=== PATIENT | male | born 1945 | race Caucasian/White ===

== ENCOUNTER 2019-03-28 12:56 | Emergency (ER) | payer MEDICARE, BC ==
[2019-03-28] MEDS ORDERED: Sodium Chloride 0.9% 10 ML Syringe FLUSH PRN (13:00)
[2019-03-28] MEDS ORDERED: HYDROmorphone 0.5 MG/0.5 ML Syringe IVPUSH ONE (13:01)
[2019-03-28] MEDS ORDERED: Diphtheria,Pertussis(Acell),Tetanus Vaccine 0.5 ML SDV IM ONE (13:02)
--- NOTE | 2019-03-28 13:38 | EDM.PDOC ---
ED HPI GENERAL MEDICAL PROBLEM - General Chief Complaint: Laceration Stated Complaint: CUT FINGERS WHILE USING TABLE SAW Time Seen by Provider: 03/28/19 13:20 Source of Information: Reports: Patient, Family History Limitations: Reports: No Limitations - History of Present Illness INITIAL COMMENTS - FREE TEXT/NARRATIVE: pt had the gaurd off of his table saw. He was doing some work today and he ended up getting his right hand in the saw. He has a laceration of his rt small finger and he has a laceration of the tip of the rt index finger. He is able to move the small finger. Onset: Today, Sudden Duration: Hour(s): Location: Reports: Upper Extremity, Right Associated Symptoms: Reports: Other (pain in rt hand where the lacerations were. ) finger Pain Score (Numeric/FACES): 6 - Related Data Allergies Allergy/AdvReac Type Severity Reaction Status Date / Time No Known Allergies Allergy Verified 03/28/19 13:19 Home Meds: Home Meds Albuterol Sulfate [Proair Hfa] 2 puff INH BEDTIME PRN 06/09/16 [History] Lisinopril 10 mg PO DAILY 11/10/16 [History] Triamterene/Hydrochlorothiazid [Triamterene-HCTZ 37.5-25 MG] 1 tab PO DAILY [History] Albuterol [Proventil Neb Soln] 0.63 mg NEB Q6H PRN 11/29/16 [History] Ibuprofen [Advil] 200 mg PO TID 07/13/17 [History] Fluticasone/Salmeterol [Advair 250-50 Diskus] 1 diskus INH BID 12/06/18 [History ] Past Medical History HEENT History: Reports: Impaired Vision Other HEENT History: wear glasses Cardiovascular History: Reports: Hypertension, SOB on Exertion Respiratory History: Reports: COPD, Pneumonia, Recurrent, Sleep Apnea, SOB Gastrointestinal History: Reports: None Musculoskeletal History: Reports: Arthritis, Back Pain, Chronic, Fracture Endocrine/Metabolic History: Reports: Obesity/BMI 30+ Hematologic History: Reports: None Dermatologic History: Reports: Cellulitis - Infectious Disease History Infectious Disease History: Reports: Chicken Pox, Measles, Mumps - Past Surgical History HEENT Surgical History: Reports: Adenoidectomy, Tonsillectomy Cardiovascular Surgical History: Reports: None Respiratory Surgical History: Reports: Lung Biopsies, Lung Resection GI Surgical History: Reports: Colonoscopy Endocrine Surgical History: Reports: None Musculoskeletal Surgical History: Reports: Carpal Tunnel, Hip Replacement Other Musculoskeletal Surgeries/Procedures:: back injections Social & Family History - Family History Cardiac: Reports: High Cholesterol, Hypertension, Pacemaker : Reports: Diabetic Nephropathy Musculoskeletal: Reports: Arthritis Neurological: Reports: CVA, Other (See Below) Other Neurological Family History: parkinsons Oncologic: Reports: Breast - Tobacco Use Smoking Status *Q: Unknown Ever Smoked - Caffeine Use Caffeine Use: Reports: Coffee - Recreational Drug Use Recreational Drug Use: No ED ROS GENERAL - Review of Systems Review Of Systems: See Below Constitutional: Reports: No Symptoms HEENT: Reports: No Symptoms Respiratory: Reports: No Symptoms Cardiovascular: Reports: No Symptoms Endocrine: Reports: No Symptoms GI/Abdominal: Reports: No Symptoms : Reports: No Symptoms Musculoskeletal: Reports: Other ( laceration of the rt hand. ) Skin: Reports: No Symptoms ED EXAM, SKIN/RASH Exam: See Below Text/Narrative:: pt arrived with a history of a accident with his table saw. He has a laceration of the small finger on the feng aspec 2.5 inches in length. He has fair motion of the finger He went into the tip of the index finger and got into the tuft of the tip of the finger. Exam Limited By: No Limitations General Appearance: Alert, Anxious, Moderate Distress Ears: Normal TMs Nose: Normal Inspection Throat/Mouth: Normal Inspection Head: Atraumatic Neck: Normal Inspection Extremities: Other ( pt has a 2.5 inch laceration of the feng aspect of the small finger. He does have motion in the finger. He hit the tip of the index finger and got into the tuft of the finger. ) Neurological: Alert, Oriented, Normal Cognition Course - Vital Signs Last Recorded V/S: Last Vital Signs Temp 36.3 C 03/28/19 13:15 Pulse 98 03/28/19 13:15 Resp 20 03/28/19 13:15 BP 137/84 03/28/19 13:15 Pulse Ox 95 03/28/19 13:15 - Orders/Labs/Meds Meds: Medications Discontinued Medications Generic Name Dose Route Start Last Admin Trade Name Freq PRN Reason Stop Dose Admin Diphtheria/Tetanus/Acell Pertussis 0.5 ml 03/28/19 13:02 03/28/19 13:11 Adacel IM 03/28/19 13:03 0.5 ml .ONCE ONE Administration Hydromorphone HCl 0.5 mg 03/28/19 13:01 03/28/19 13:11 Dilaudid IVPUSH 03/28/19 13:02 0.5 mg ONETIME ONE Administration Cefazolin Sodium/Dextrose 2 gm 50 mls @ 100 mls/hr 03/28/19 14:15 03/28/19 14 :27 / Premix IV 03/28/19 14:44 100 mls/hr ONETIME ONE Administration Sodium Chloride 10 ml 03/28/19 13:00 03/28/19 13:12 Saline Flush FLUSH 10 ml ASDIRECTED PRN Administration Keep Vein Open - Re-Assessments/Exams Free Text/Narrative Re-Assessment/Exam: 03/28/19 14:48 pt was given tdap booster. He was given 2 grams of ancef. He also was given dilaudid .5 iv. 03/28/19 14:49 Dr Lazcano will consult. He explored the small finger and found a complete laceration of the profundis . the wound was closed. and will be covered with antibiotics, 03/28/19 16:47 Departure - Departure Time of Disposition: 17:35 Disposition: Home, Self-Care 01 Condition: Fair Clinical Impression: Laceration involving tendon - Discharge Information Instructions: Laceration Care, Adult, [id number] Referrals: Nino Meredith MD [Primary Care Provider] - Forms: ED Department Discharge Care Plan Goals: keflex 500mg tid, norco 5/325 q6h prn #10 for pain, elevate hand when sitting. keep appt with Dr Farnsworth hand surgeon at [facility]. -- Tuesday at 10-10 copy of xray should be placed on disc to go with the pt. The records from here should be sent with him
[2019-03-28 13:44] VITALS: BP 137/84; PULSE 98
[2019-03-28] MEDS ORDERED: ceFAZolin 2 GM in Premix Bag 1 BAG IV ONE (14:15)
--- NOTE | 2019-03-28 14:26 | CRLCR ---
INDICATION: Table saw injury. TECHNIQUE: Three views of the right hand. COMPARISON: None. FINDINGS: Laceration at the index finger tip with tiny amount of bone loss from the distal phalangeal tuft. Laceration at the little finger tip with apparent fracture of the distal phalangeal tuft but no obvious bone loss. Additional laceration of the palmar aspect of the little finger extending to the cortex of the middle phalanx but no obvious fracture or bone loss. IMPRESSION: 1. Index finger tip laceration with tiny amount of bone loss from the distal phalangeal tuft. 2. Little finger tip laceration with distal phalangeal tuft fracture but no obvious bone loss. 3. Deep laceration along the palmar aspect of the mid little finger without fracture or obvious bone loss. Dictated by Santos Alberto MD @ Mar 28 2019 2:19PM Signed by Dr. Santos Alberto @ Mar 28 2019 2:24PM
== END 2019-03-28 17:33 | disposition home or self-care (01) ==
LOC: JP.ED 12:56
DX: S66.821A Laceration of other specified muscles, fascia and tendons at wrist and hand level, right hand, initial encounter (principal); I10 Essential (primary) hypertension; Z79.899 Other long term (current) drug therapy; Z23 Encounter for immunization; W27.0XXA Contact with workbench tool, initial encounter
CPT/HCPCS: 73130; 90471; 90715; 96374; 96375; 99283; J0690; J1170

== ENCOUNTER 2020-05-21 10:37 | Emergency (ER) | payer MEDICARE, BC ==
[2020-05-21] MEDS ORDERED: Sodium Chloride 0.9% 10 ML Syringe FLUSH PRN (10:47)
[2020-05-21] MEDS ORDERED: Adenosine 6 MG/2 ML SDV IVPUSH ONE (10:49)
[2020-05-21] MEDS ORDERED: Diltiazem 25 MG/5 ML SDV IVPUSH ONE (10:54)
[2020-05-21] MEDS ORDERED: Sodium Chloride 0.9% 500 ML IV ONE (11:04)
--- NOTE | 2020-05-21 12:42 | EDM.PDOC ---
ED HPI GENERAL MEDICAL PROBLEM - General Chief Complaint: Cardiovascular Problem Stated Complaint: REFERRED FROM CLINIC Time Seen by Provider: 05/21/20 10:46 Source of Information: Reports: Patient, Old Records, Provider History Limitations: Reports: No Limitations - History of Present Illness INITIAL COMMENTS - FREE TEXT/NARRATIVE: Pilo is a 74-year-old male who presented to the clinic today for evaluation of rapid heartbeat. The EKG was performed and showed tachycardia read as sinus tachycardia, however, the rate was 130 bpm and was suggestive of atrial flutter prompting the provider to send the patient to the ED for evaluation. Patient is having exertional dyspnea. He is unsure exactly when the tachycardia started but he has been taking his blood pressure frequently over the last several days and noted that his heart rate was in 90s until this morning. His heart rate did not jump up to the 130s until he was seen in clinic today. Eyes any fever, chills, cough, chest pain or back pain, abdominal pain, nausea, vomiting, or diarrhea. Onset: Today Improves with: Reports: Rest Worsens with: Reports: Movement Associated Symptoms: Reports: Shortness of Breath (With exertion) - Related Data Allergies Allergy/AdvReac Type Severity Reaction Status Date / Time No Known Allergies Allergy Verified 05/21/20 10:49 Home Meds: Home Meds Albuterol Sulfate [Proair Hfa] 2 puff INH BEDTIME PRN 06/09/16 [History] Lisinopril 10 mg PO DAILY 11/10/16 [History] Triamterene/Hydrochlorothiazid [Triamterene-HCTZ 37.5-25 MG] 1 tab PO DAILY 11/10/16 [History] Albuterol [Proventil Neb Soln] 0.63 mg NEB Q6H PRN 11/29/16 [History] Ibuprofen [Advil] 200 mg PO TID 07/13/17 [History] Fluticasone Propion/Salmeterol [Advair 250-50 Diskus] 1 diskus INH BID 12/06/18 [History] Past Medical History HEENT History: Reports: Impaired Vision Other HEENT History: wear glasses Cardiovascular History: Reports: Hypertension, SOB on Exertion Respiratory History: Reports: COPD, Pneumonia, Recurrent, Sleep Apnea, SOB Gastrointestinal History: Reports: None Musculoskeletal History: Reports: Arthritis, Back Pain, Chronic, Fracture Endocrine/Metabolic History: Reports: Obesity/BMI 30+ Hematologic History: Reports: None Dermatologic History: Reports: Cellulitis - Infectious Disease History Infectious Disease History: Reports: Chicken Pox - Past Surgical History HEENT Surgical History: Reports: Adenoidectomy, Tonsillectomy Cardiovascular Surgical History: Reports: None Respiratory Surgical History: Reports: Lung Biopsies, Lung Resection GI Surgical History: Reports: Colonoscopy Endocrine Surgical History: Reports: None Musculoskeletal Surgical History: Reports: Carpal Tunnel, Hip Replacement Other Musculoskeletal Surgeries/Procedures:: back injections Social & Family History - Family History Cardiac: Reports: High Cholesterol, Hypertension, Pacemaker : Reports: Diabetic Nephropathy Musculoskeletal: Reports: Arthritis Neurological: Reports: CVA, Other (See Below) Other Neurological Family History: parkinsons Oncologic: Reports: Breast - Tobacco Use Tobacco Use Status *Q: Current Every Day Tobacco User Years of Tobacco use: 50 Packs/Tins Daily: 0.5 - Caffeine Use Caffeine Use: Reports: Coffee - Recreational Drug Use Recreational Drug Use: No ED ROS GENERAL - Review of Systems Review Of Systems: See Below Constitutional: Reports: No Symptoms HEENT: Reports: No Symptoms Respiratory: Reports: Shortness of Breath Cardiovascular: Reports: Blood Pressure Problem, Dyspnea on Exertion, Palpitations (Tachycardia) Endocrine: Reports: No Symptoms GI/Abdominal: Reports: No Symptoms : Reports: No Symptoms Musculoskeletal: Reports: No Symptoms Skin: Reports: No Symptoms Neurological: Reports: No Symptoms Psychiatric: Reports: No Symptoms Hematologic/Lymphatic: Reports: No Symptoms Immunologic: Reports: No Symptoms ED EXAM, GENERAL - Physical Exam Exam: See Below Exam Limited By: No Limitations General Appearance: Alert, Anxious Eye Exam: Bilateral Eye: EOMI, PERRL Throat/Mouth: Normal Inspection, Normal Lips, Normal Oropharynx, Normal Voice Head: Atraumatic, Normocephalic Neck: Normal Inspection, Supple. No: Carotid Bruit Respiratory/Chest: No Respiratory Distress, Lungs Clear, Normal Breath Sounds, No Accessory Muscle Use, Chest Non-Tender. No: Rales, Rhonchi, Wheezing, Stridor Cardiovascular: Normal Peripheral Pulses, No Edema, No JVD, Tachycardia (With a regular rhythm. We had the patient Valsalva and it appears he is in atrial flutter with 2-1 conduction.), Systolic Murmur (2/6 6 colic ejection murmur heard in the right upper sternal border) Peripheral Pulses: 2+: Radial (L), Radial (R) GI/Abdominal: Normal Bowel Sounds, Soft, Non-Tender, No Organomegaly, No Distention, No Abnormal Bruit Back Exam: Normal Inspection, Full Range of Motion Extremities: Normal Inspection, Normal Range of Motion, Non-Tender, No Pedal Edema, Normal Capillary Refill Neurological: Alert, Oriented, CN II-XII Intact, Normal Cognition, Normal Gait, No Motor/Sensory Deficits Psychiatric: Normal Affect, Normal Mood Skin Exam: Warm, Dry, Intact Lymphatic: No Adenopathy #1 Interpretation EKG Date: 05/21/20 Time: 10:46 Rhythm: A-Flutter Rate (Beats/Min): 131 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) ST-T: Other (Repolarization abnormality) QT: Normal Course - Vital Signs Last Recorded V/S: Last Vital Signs Temp 36.0 C L 05/21/20 14:17 Pulse 60 05/21/20 14:17 Resp 19 05/21/20 14:17 BP 107/66 05/21/20 14:17 Pulse Ox 95 05/21/20 14:17 - Orders/Labs/Meds Orders: Active Orders 24 hr Category Date Time Status EKG Documentation Completion [RC] ASDIRECTED Care 05/21/20 10:48 Active Heparin Sodium/D5W [Heparin 25,000 Units in D5W 500 ML] Med 05/21/20 13:30 Active 25,000 units in 500 ml IV TITRATE Sodium Chloride 0.9% [Saline Flush] Med 05/21/20 10:47 Active 10 ml FLUSH ASDIRECTED PRN Saline Lock Insert [OM.PC] Routine Oth 05/21/20 10:47 Ordered EKG 12 Lead [EK] Routine Ther 05/21/20 10:47 Ordered Medication Orders Heparin Sodium/Dextrose (Heparin 25,000 Units In D5w 500 Ml) 25,000 units in 500 mls @ 23.76 mls/hr IV TITRATE MERARI; Protocol Last Admin: 05/21/20 14:05 Dose: 12 units/kg/hr, 23.76 mls/hr Documented by: PREILOR Cosigned by: [id number] Sodium Chloride (Saline Flush) 10 ml FLUSH ASDIRECTED PRN PRN Reason: Keep Vein Open Labs: Laboratory Tests 05/21/20 05/21/20 05/21/20 Range/Units 10:53 10:54 10:54 WBC 9.9 (4.5-11.0) K/uL RBC 4.94 (4.30-5.90) M/uL Hgb 15.9 H D (12.0-15.0) g/dL Hct 49.1 (40.0-54.0) % MCV 99 H (80-98) fL MCH 32 H (27-31) pg MCHC 32 (32-36) % Plt Count 221 (150-400) K/uL Neut % (Auto) 64 (36-66) % Lymph % (Auto) 24 (24-44) % [place] % (Auto) 10 H (2-6) % Eos % (Auto) 2 (2-4) % Baso % (Auto) 1 (0-1) % APTT 26.4 L (27.0-36.0) sec Sodium (140-148) mmol/L Potassium (3.6-5.2) mmol/L Chloride (100-108) mmol/L Carbon Dioxide (21-32) mmol/L Anion Gap (5.0-14.0) mmol/L BUN (7-18) mg/dL Creatinine (0.8-1.3) mg/dL Est Cr Clr Drug Dosing mL/min Estimated GFR (MDRD) (>60) Glucose (74-106) mg/dL Calcium (8.5-10.1) mg/dL Magnesium (1.8-2.4) mg/dL Total Bilirubin (0.2-1.0) mg/dL AST (15-37) U/L ALT (12-78) U/L Alkaline Phosphatase (46-116) U/L Troponin I (0.000-0.056) ng/mL C-Reactive Protein 0.19 (0.0-0.3) mg/dL Total Protein (6.4-8.2) g/dL Albumin (3.4-5.0) g/dL Globulin (2.3-3.5) g/dL Albumin/Globulin Ratio (1.2-2.2) TSH, Ultra Sensitive (0.358-3.740) uIU/mL 10/28/20 10/28/20 Range/Units 10:54 10:54 WBC (4.5-11.0) K/uL RBC (4.30-5.90) M/uL Hgb (12.0-15.0) g/dL Hct (40.0-54.0) % MCV (80-98) fL MCH (27-31) pg MCHC (32-36) % Plt Count (150-400) K/uL Neut % (Auto) (36-66) % Lymph % (Auto) (24-44) % [place] % (Auto) (2-6) % Eos % (Auto) (2-4) % Baso % (Auto) (0-1) % APTT (27.0-36.0) sec Sodium 142 (140-148) mmol/L Potassium 3.9 (3.6-5.2) mmol/L Chloride 106 (100-108) mmol/L Carbon Dioxide 29 (21-32) mmol/L Anion Gap 7.4 (5.0-14.0) mmol/L BUN 33 H (7-18) mg/dL Creatinine 1.0 (0.8-1.3) mg/dL Est Cr Clr Drug Dosing 72.21 mL/min Estimated GFR (MDRD) > 60 (>60) Glucose 107 H (74-106) mg/dL Calcium 8.9 (8.5-10.1) mg/dL Magnesium 2.0 (1.8-2.4) mg/dL Total Bilirubin 0.5 (0.2-1.0) mg/dL AST 22 (15-37) U/L ALT 38 (12-78) U/L Alkaline Phosphatase 80 (46-116) U/L Troponin I 0.144 H* (0.000-0.056) ng/mL C-Reactive Protein (0.0-0.3) mg/dL Total Protein 7.2 (6.4-8.2) g/dL Albumin 3.6 (3.4-5.0) g/dL Globulin 3.6 H (2.3-3.5) g/dL Albumin/Globulin Ratio 1.0 L (1.2-2.2) TSH, Ultra Sensitive 0.431 (0.358-3.740) uIU/mL Meds: Medications Generic Name Dose Route Start Last Admin Trade Name Freq PRN Reason Stop Dose Admin Heparin Sodium/Dextrose 25,000 units in 500 mls @ 23.76 mls/hr 05/21/20 13:30 05/21/20 14:05 Heparin 25,000 Units In D5w 500 Ml IV 12 units/kg/hr TITRATE MERARI 23.76 mls/hr Administration Protocol 12 UNITS/KG/HR Sodium Chloride 10 ml 05/21/20 10:47 Saline Flush FLUSH ASDIRECTED PRN Keep Vein Open Discontinued Medications Generic Name Dose Route Start Last Admin Trade Name Freq PRN Reason Stop Dose Admin Adenosine 12 mg 05/21/20 10:49 Adenocard IVPUSH 05/21/20 10:50 NOW ONE Diltiazem HCl 20 mg 05/21/20 10:54 05/21/20 11:03 Diltiazem IVPUSH 05/21/20 10:55 20 mg ONETIME ONE Administration Sodium Chloride 500 mls @ 500 mls/hr 05/21/20 11:04 05/21/20 11:09 Normal Saline IV 05/21/20 12:03 500 mls/hr .BOLUS ONE Administration Metoprolol Succinate 25 mg 05/21/20 13:26 05/21/20 13:53 Toprol Xl PO 05/21/20 13:27 25 mg ONETIME ONE Administration - Re-Assessments/Exams Free Text/Narrative Re-Assessment/Exam: 05/21/20 13:49 I discussed the case with Dr. Paulino, the ED physician from [facility] who accepts the patient in transfer for further admission and care of his non-STEMI and acute onset of atrial flutter. The patient will go by ground EMS. We initiated heparin IV and metoprolol 25 mg p.o. to rate control him without causing significant hypotension again as he had with the diltiazem. Departure - Departure Time of Disposition: 13:55 Disposition: DC/Tfer to Other 70 Reason for Transfer *Q: Other (Further evaluation and care by cardiology for new onset of atrial flutter and non-STEMI) Condition: Good Clinical Impression: Non-STEMI (non-ST elevated myocardial infarction) Atrial flutter Qualifiers: Atrial flutter type: typical Qualified Code(s): I48.3 - Typical atrial flutter Referrals: Nino Meredith MD [Primary Care Provider] - Forms: ED Department Discharge Care Plan Goals: Patient will be transferred to [facility] for admission and further work-up of his new onset of atrial flutter and non-STEMI. Sepsis Event Note (ED) - Evaluation Sepsis Screening Result: No Definite Risk - Focused Exam Vital Signs: Vital Signs Temp Pulse Pulse Resp BP BP Pulse Ox 05/21/20 14:17 36.0 C L 60 19 107/66 95 05/21/20 13:53 64 109/68 05/21/20 13:45 61 20 112/70 95 05/21/20 13:15 61 24 H 102/63 93 L 05/21/20 13:00 65 22 H 90/47 L 93 L 05/21/20 12:45 65 26 H 92/63 94 L 05/21/20 12:30 66 20 82/48 L 93 L 05/21/20 12:15 64 25 H 76/43 L 95 05/21/20 12:00 65 18 74/44 L 95 05/21/20 11:45 64 20 85/54 L 94 L 05/21/20 11:29 65 18 83/55 L 93 L 05/21/20 11:15 65 26 H 86/59 L 91 L 05/21/20 11:00 65 22 H 84/59 L 92 L 05/21/20 10:45 131 H 19 112/70 93 L 05/21/20 10:44 36.9 C 130 H 24 H 105/77 94 L - Problem List & Annotations (1) Atrial flutter SNOMED Code(s): 7411837 Code(s): I48.92 - UNSPECIFIED ATRIAL FLUTTER Status: Acute Priority: High Current Visit: Yes Qualifiers: Atrial flutter type: typical Qualified Code(s): I48.3 - Typical atrial flutter (2) Non-STEMI (non-ST elevated myocardial infarction) SNOMED Code(s): 56439479 Code(s): I21.4 - NON-ST ELEVATION (NSTEMI) MYOCARDIAL INFARCTION Status: Acute Priority: High Current Visit: Yes - Problem List Review Problem List Initiated/Reviewed/Updated: Yes - My Orders Last 24 Hours: My Active Orders 05/21/20 10:47 Sodium Chloride 0.9% [Saline Flush] 10 ml FLUSH ASDIRECTED PRN Saline Lock Insert [OM.PC] Routine EKG 12 Lead [EK] Routine 05/21/20 10:48 EKG Documentation Completion [RC] ASDIRECTED 05/21/20 13:30 Heparin Sodium/D5W [Heparin 25,000 Units in D5W 500 ML] 25,000 units in 500 ml IV TITRATE - Assessment/Plan Last 24 Hours: My Active Orders 05/21/20 10:47 Sodium Chloride 0.9% [Saline Flush] 10 ml FLUSH ASDIRECTED PRN Saline Lock Insert [OM.PC] Routine EKG 12 Lead [EK] Routine 05/21/20 10:48 EKG Documentation Completion [RC] ASDIRECTED 05/21/20 13:30 Heparin Sodium/D5W [Heparin 25,000 Units in D5W 500 ML] 25,000 units in 500 ml IV TITRATE Plan: Patient will be transferred to [facility] in [place] for further evaluation and care.
[2020-05-21] MEDS ORDERED: Metoprolol Succinate 25 MG Tab.ER PO ONE (13:26)
[2020-05-21] MEDS ORDERED: Heparin Sodium/D5W 25,000 UNITS/500 ML BAG IV SCH (13:30)
[2020-05-21 14:18] VITALS: BP 107/66; PULSE 60
== END 2020-05-21 15:11 | disposition other institution (70) ==
LOC: JP.ED 10:37
DX: I21.4 Non-ST elevation (NSTEMI) myocardial infarction (principal); I10 Essential (primary) hypertension; J44.9 Chronic obstructive pulmonary disease, unspecified; E66.9 Obesity, unspecified; F17.210 Nicotine dependence, cigarettes, uncomplicated; Z68.29 Body mass index [BMI] 29.0-29.9, adult; Z79.899 Other long term (current) drug therapy
CPT/HCPCS: 36415; 80053; 83735; 84443; 84484; 85025; 85730; 86140; 93005; 96365; 96375; 99285; A9270; J1644; J3490; J7040

== ENCOUNTER 2020-06-05 16:38 | Emergency (ER) | payer MEDICARE, BC ==
--- NOTE | 2020-06-05 16:42 | EDM.PDOC ---
ED HPI GENERAL MEDICAL PROBLEM - General Chief Complaint: Chest Pain Stated Complaint: CHEST PAIN Time Seen by Provider: 06/05/20 16:40 Source of Information: Reports: Patient, Old Records History Limitations: Reports: No Limitations - History of Present Illness INITIAL COMMENTS - FREE TEXT/NARRATIVE: 74 yo male here with mild residual chest pain after taking 2 SL NTG tabs at home for chest pain that began about 2 pm today while watching TV. He recently has a single coronary artery stented at [facility]. He had a little SOB with his sx's at home. No nausea, diaphoresis or radiation. No fever or cough. No calf pain. Took an extra dose of metoprolol 12.5 mg before coming to the ER. 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 (x 2) chest Pain Score (Numeric/FACES): 3 - Related Data Allergies Allergy/AdvReac Type Severity Reaction Status Date / Time No Known Allergies Allergy Verified 06/05/20 16:41 Home Meds: Home Meds Albuterol Sulfate [Proair Hfa] 2 puff INH BEDTIME PRN 06/09/16 [History] Lisinopril 10 mg PO DAILY 11/10/16 [History] Albuterol [Proventil Neb Soln] 0.63 mg NEB Q6H PRN 11/29/16 [History] Ibuprofen [Advil] 200 mg PO TID 07/13/17 [History] Fluticasone Propion/Salmeterol [Advair 250-50 Diskus] 1 diskus INH BID 12/06/18 [History] Apixaban [Eliquis] 5 mg PO BID 06/05/20 [History] Aspirin [Ecotrin EC] 81 mg PO DAILY 06/05/20 [History] Clopidogrel [Plavix] 75 mg PO DAILY 06/05/20 [History] Metoprolol Tartrate 12.5 mg PO DAILY 06/05/20 [History] Nitroglycerin [Nitrostat] 0.4 mg SL ASDIRECTED 06/05/20 [History] atorvaSTATin [Lipitor] 80 mg PO BEDTIME 06/05/20 [History] Past Medical History HEENT History: Reports: Impaired Vision Other HEENT History: wear glasses Cardiovascular History: Reports: Hypertension, SOB on Exertion Respiratory History: Reports: COPD, Pneumonia, Recurrent, Sleep Apnea, SOB Gastrointestinal History: Reports: None Musculoskeletal History: Reports: Arthritis, Back Pain, Chronic, Fracture Endocrine/Metabolic History: Reports: Obesity/BMI 30+ Hematologic History: Reports: None Dermatologic History: Reports: Cellulitis - Infectious Disease History Infectious Disease History: Reports: Chicken Pox - Past Surgical History HEENT Surgical History: Reports: Adenoidectomy, Tonsillectomy Cardiovascular Surgical History: Reports: None Respiratory Surgical History: Reports: Lung Biopsies, Lung Resection GI Surgical History: Reports: Colonoscopy Endocrine Surgical History: Reports: None Musculoskeletal Surgical History: Reports: Carpal Tunnel, Hip Replacement Other Musculoskeletal Surgeries/Procedures:: back injections Social & Family History - Family History Cardiac: Reports: High Cholesterol, Hypertension, Pacemaker : Reports: Diabetic Nephropathy Musculoskeletal: Reports: Arthritis Neurological: Reports: CVA, Other (See Below) Other Neurological Family History: parkinsons Oncologic: Reports: Breast - Caffeine Use Caffeine Use: Reports: Coffee ED ROS GENERAL - Review of Systems Review Of Systems: See Below Constitutional: Reports: No Symptoms HEENT: Reports: No Symptoms Respiratory: Reports: Shortness of Breath (when his CP was worse, now gone at rest. ). Denies: Wheezing, Pleuritic Chest Pain, Cough, Sputum, Hemoptysis Cardiovascular: Reports: Chest Pain. Denies: Lightheadedness, Palpitations Endocrine: Reports: No Symptoms GI/Abdominal: Reports: No Symptoms : Reports: No Symptoms Musculoskeletal: Reports: No Symptoms Skin: Reports: No Symptoms Neurological: Reports: No Symptoms ED EXAM, GENERAL - Physical Exam Exam: See Below Exam Limited By: No Limitations General Appearance: Alert, WD/WN, No Apparent Distress Eye Exam: Bilateral Eye: Normal Inspection Ears: Normal External Exam, Normal Canal, Hearing Grossly Normal Ear Exam: Bilateral Ear: Auricle Normal, Canal Normal Nose: Normal Inspection, No Blood Throat/Mouth: Normal Inspection, Normal Lips, Normal Oropharynx, Normal Voice, No Airway Compromise Head: Atraumatic, Normocephalic Neck: Normal Inspection Respiratory/Chest: No Respiratory Distress, Lungs Clear, Normal Breath Sounds, No Accessory Muscle Use, Chest Non-Tender Cardiovascular: Regular Rate, Rhythm, No Edema GI/Abdominal: Normal Bowel Sounds, Soft, Non-Tender, No Distention Back Exam: Normal Inspection Extremities: Normal Inspection, Normal Range of Motion, Non-Tender, No Pedal Edema. No: Pedal Edema Neurological: Alert, Oriented, CN II-XII Intact, Normal Cognition, No Motor/Sensory Deficits Psychiatric: Normal Affect, Normal Mood Skin Exam: Warm, Dry, Intact, Normal Color, No Rash ED CARDIOLOGY PROCEDURES - Cardioversion Time of Cardioversion: 19:30 Indication: Atrial Flutter with RVR Patient Counseled: Yes Informed Consent Obtained: Yes Preparation: IV Access, Airway Management Equipment, Supplemental Oxygen, Monitor Pre-Procedure Sedation: Propofol Cardioversion Energy: 200J Sync Mode: Monophasic Successful: Yes Number of Attempts: 1 Patient Condition Post Cardioversion: Improved Post Cardioversion EKG Reviewed: Yes #1 Interpretation EKG Date: 06/05/20 Time: 16:30 Rhythm: NSR Rate (Beats/Min): 115 [place]: Normal P-Wave: Present QRS: RBBB ST-T: Normal QT: Normal Comparison: Change From Previous EKG (rate has slowed by 16/min.) Course - Vital Signs Last Recorded V/S: Last Vital Signs Temp 35.6 C L 06/05/20 16:38 Pulse 117 H 06/05/20 17:58 Resp 20 06/05/20 16:38 BP 124/92 H 06/05/20 17:58 Pulse Ox 94 L 06/05/20 16:38 - Orders/Labs/Meds Orders: Active Orders 24 hr Category Date Time Status Cardiac Monitoring [RC] .As Directed Care 06/05/20 16:39 Active EKG Documentation Completion [RC] ASDIRECTED Care 06/05/20 16:39 Active MAGNESIUM [CHEM] Stat Lab 06/05/20 19:00 Received Sodium Chloride 0.9% [Saline Flush] Med 06/05/20 16:48 Active 10 ml FLUSH ASDIRECTED PRN Saline Lock Insert [OM.PC] Routine Oth 06/05/20 16:48 Ordered EKG 12 Lead [EK] Routine Ther 06/05/20 16:39 Ordered Medication Orders Sodium Chloride (Saline Flush) 10 ml FLUSH ASDIRECTED PRN PRN Reason: Keep Vein Open Labs: Laboratory Tests 06/05/20 06/05/20 06/05/20 Range/Units 16:48 16:48 16:48 WBC 9.7 (4.5-11.0) K/uL RBC 4.42 (4.30-5.90) M/uL Hgb 14.0 (12.0-15.0) g/dL Hct 44.3 (40.0-54.0) % MCV 100 H (80-98) fL MCH 32 H (27-31) pg MCHC 32 (32-36) % Plt Count 220 (150-400) K/uL D-Dimer, Quantitative 233.06 (0.0-500.0) ng/mL Sodium 142 (140-148) mmol/L Potassium 4.3 (3.6-5.2) mmol/L Chloride 106 (100-108) mmol/L Carbon Dioxide 29 (21-32) mmol/L Anion Gap 7.0 (5.0-14.0) mmol/L BUN 21 H (7-18) mg/dL Creatinine 0.9 (0.8-1.3) mg/dL Est Cr Clr Drug Dosing 80.23 mL/min Estimated GFR (MDRD) > 60 (>60) Glucose 77 (74-106) mg/dL Calcium 8.6 (8.5-10.1) mg/dL Troponin I 0.032 (0.000-0.056) ng/mL 06/05/20 Range/Units 19:00 WBC (4.5-11.0) K/uL RBC (4.30-5.90) M/uL Hgb (12.0-15.0) g/dL Hct (40.0-54.0) % MCV (80-98) fL MCH (27-31) pg MCHC (32-36) % Plt Count (150-400) K/uL D-Dimer, Quantitative (0.0-500.0) ng/mL Sodium (140-148) mmol/L Potassium (3.6-5.2) mmol/L Chloride (100-108) mmol/L Carbon Dioxide (21-32) mmol/L Anion Gap (5.0-14.0) mmol/L BUN (7-18) mg/dL Creatinine (0.8-1.3) mg/dL Est Cr Clr Drug Dosing mL/min Estimated GFR (MDRD) (>60) Glucose (74-106) mg/dL Calcium (8.5-10.1) mg/dL Troponin I 0.054 (0.000-0.056) ng/mL Meds: Medications Generic Name Dose Route Start Last Admin Trade Name Freq PRN Reason Stop Dose Admin Sodium Chloride 10 ml 06/05/20 16:48 Saline Flush FLUSH ASDIRECTED PRN Keep Vein Open Discontinued Medications Generic Name Dose Route Start Last Admin Trade Name Freq PRN Reason Stop Dose Admin Aspirin 243 mg 06/05/20 16:49 06/05/20 17:00 Aspirin PO 06/05/20 16:50 243 mg ONETIME ONE Administration Metoprolol Tartrate 25 mg 06/05/20 17:54 06/05/20 17:58 Lopressor PO 06/05/20 17:55 25 mg ONETIME ONE Administration Nitroglycerin 0.4 mg 06/05/20 16:48 06/05/20 17:00 Nitrostat SL 06/05/20 16:49 0.4 mg ONETIME ONE Administration Propofol 100 mg 06/05/20 18:41 06/05/20 19:03 Diprivan 20 Ml 1 mg/kg (100 mg) 06/05/20 18:42 100 mg IVPUSH Administration ONETIME ONE - Re-Assessments/Exams Free Text/Narrative Re-Assessment/Exam: 06/05/20 17:53 Became pain-free after a single NTG here and has remained pain-free since. Free Text/Narrative Re-Assessment/Exam: 06/05/20 18:36 discussed case with an [facility] Volunteer Coordinator, she thinks he's in aflutter and recommends cardioversion and then an increase in his metoprolol dose if he can go home. Departure - Departure Time of Disposition: 20:15 Disposition: Home, Self-Care 01 Clinical Impression: Atrial flutter with rapid ventricular response Instructions: Atrial Flutter Referrals: Nino Meredith MD [Primary Care Provider] - Forms: ED Department Discharge Additional Instructions: Increase your metoprolol tartrate to 25 mg every 12 hrs, next dose at bedtime tonight. Keep your appt with cardiology as scheduled. Return as needed. Continue your other medications as currently. Sepsis Event Note (ED) - Focused Exam Vital Signs: Vital Signs Temp Pulse Pulse Resp BP BP Pulse Ox 06/05/20 17:58 117 H 124/92 H 06/05/20 17:00 129/98 H 06/05/20 16:38 35.6 C L 113 H 20 129/98 H 94 L - My Orders Last 24 Hours: My Active Orders 06/05/20 16:39 Cardiac Monitoring [RC] .As Directed EKG Documentation Completion [RC] ASDIRECTED EKG 12 Lead [EK] Routine 06/05/20 16:48 Sodium Chloride 0.9% [Saline Flush] 10 ml FLUSH ASDIRECTED PRN Saline Lock Insert [OM.PC] Routine 06/05/20 19:00 MAGNESIUM [CHEM] Stat - Assessment/Plan Last 24 Hours: My Active Orders 06/05/20 16:39 Cardiac Monitoring [RC] .As Directed EKG Documentation Completion [RC] ASDIRECTED EKG 12 Lead [EK] Routine 06/05/20 16:48 Sodium Chloride 0.9% [Saline Flush] 10 ml FLUSH ASDIRECTED PRN Saline Lock Insert [OM.PC] Routine 06/05/20 19:00 MAGNESIUM [CHEM] Stat
[2020-06-05] MEDS ORDERED: Sodium Chloride 0.9% 10 ML Syringe FLUSH PRN (16:48)
[2020-06-05] MEDS ORDERED: Nitroglycerin 0.4 MG Tab.SL SL ONE (16:48)
[2020-06-05] MEDS ORDERED: Aspirin 81 MG Tab.Chew PO ONE (16:49)
[2020-06-05] MEDS ORDERED: Metoprolol Tartrate 25 MG Tab PO ONE (17:54)
[2020-06-05] MEDS ORDERED: Propofol 200 MG/20 ML SDV IVPUSH ONE (18:41)
[2020-06-05 20:18] VITALS: BP 121/78; PULSE 77
== END 2020-06-05 20:15 | disposition home or self-care (01) ==
LOC: JP.ED 16:38
DX: I48.92 Unspecified atrial flutter (principal); I10 Essential (primary) hypertension; E66.9 Obesity, unspecified; M19.90 Unspecified osteoarthritis, unspecified site; Z79.82 Long term (current) use of aspirin; Z79.899 Other long term (current) drug therapy; Z68.29 Body mass index [BMI] 29.0-29.9, adult
CPT/HCPCS: 36415; 80048; 83735; 84484; 85027; 85379; 92960; 93005; 93010; 99152; 99285; 99285-25; A9270-GY; J2704

== ENCOUNTER 2020-06-18 13:04 | Emergency (ER) | payer MEDICARE, BC ==
[2020-06-18] MEDS ORDERED: Morphine 4 MG/ML Syringe IVPUSH PRN (13:10)
[2020-06-18] MEDS ORDERED: Aspirin 81 MG Tab.Chew PO ONE (13:10)
[2020-06-18] MEDS ORDERED: Sodium Chloride 0.9% 10 ML Syringe FLUSH PRN (13:10)
--- NOTE | 2020-06-18 13:15 | EDM.PDOC ---
ED HPI GENERAL MEDICAL PROBLEM - General Stated Complaint: RAPID HEART Time Seen by Provider: 06/18/20 13:09 Source of Information: Reports: Patient, RN Notes Reviewed History Limitations: Reports: No Limitations - History of Present Illness INITIAL COMMENTS - FREE TEXT/NARRATIVE: 74-year-old male presents emergency department today complaint of palpitations, he has a known history of coronary artery disease recent stent placement about 1 month ago for non-ST elevation myocardial infarction he has had cardioversion done twice over the last month for atrial fibrillation with RVR. He states the palpitations come on about an hour and a half prior he did have some chest pain rated 8 out of 10 however it is now resolved he feels he is back to his baseline he is scheduled for an ablation early part of June of this year - Related Data Allergies Allergy/AdvReac Type Severity Reaction Status Date / Time No Known Allergies Allergy Verified 06/18/20 10:57 Home Meds: Home Meds Albuterol Sulfate [Proair Hfa] 2 puff INH BEDTIME PRN 06/09/16 [History] Lisinopril 10 mg PO DAILY 11/10/16 [History] Albuterol [Proventil Neb Soln] 0.63 mg NEB Q6H PRN 11/29/16 [History] Ibuprofen [Advil] 200 mg PO TID 07/13/17 [History] Fluticasone Propion/Salmeterol [Advair 250-50 Diskus] 1 diskus INH BID 12/06/18 [History] Apixaban [Eliquis] 5 mg PO BID 06/05/20 [History] Aspirin [Ecotrin EC] 81 mg PO DAILY 06/05/20 [History] Clopidogrel [Plavix] 75 mg PO DAILY 06/05/20 [History] Metoprolol Tartrate 12.5 mg PO BID 06/05/20 [History] Nitroglycerin [Nitrostat] 0.4 mg SL ASDIRECTED 06/05/20 [History] atorvaSTATin [Lipitor] 80 mg PO BEDTIME 06/05/20 [History] Past Medical History HEENT History: Reports: Impaired Vision Other HEENT History: wear glasses Cardiovascular History: Reports: Afib, CAD, High Cholesterol, Hypertension, ID, SOB on Exertion Respiratory History: Reports: COPD, Pneumonia, Recurrent, Sleep Apnea, SOB Musculoskeletal History: Reports: Arthritis, Back Pain, Chronic, Fracture Endocrine/Metabolic History: Reports: Obesity/BMI 30+ Hematologic History: Reports: None Dermatologic History: Reports: Cellulitis - Infectious Disease History Infectious Disease History: Reports: Chicken Pox - Past Surgical History HEENT Surgical History: Reports: Adenoidectomy, Tonsillectomy Cardiovascular Surgical History: Reports: None Respiratory Surgical History: Reports: Lung Biopsies, Lung Resection GI Surgical History: Reports: Colonoscopy Endocrine Surgical History: Reports: None Musculoskeletal Surgical History: Reports: Carpal Tunnel, Hip Replacement Other Musculoskeletal Surgeries/Procedures:: back injections Social & Family History - Family History Cardiac: Reports: High Cholesterol, Hypertension, Pacemaker : Reports: Diabetic Nephropathy Musculoskeletal: Reports: Arthritis Neurological: Reports: CVA, Other (See Below) Other Neurological Family History: parkinsons Oncologic: Reports: Breast - Caffeine Use Caffeine Use: Reports: Coffee ED ROS GENERAL - Review of Systems Review Of Systems: See Below Constitutional: Reports: No Symptoms HEENT: Reports: No Symptoms Respiratory: Reports: Shortness of Breath Cardiovascular: Reports: Chest Pain, Palpitations GI/Abdominal: Reports: No Symptoms : Reports: No Symptoms ED EXAM, GENERAL - Physical Exam Exam: See Below Exam Limited By: No Limitations General Appearance: Alert, WD/WN, No Apparent Distress Respiratory/Chest: No Respiratory Distress, Lungs Clear, Normal Breath Sounds, No Accessory Muscle Use, Chest Non-Tender Cardiovascular: Regular Rate, Rhythm, No Murmur GI/Abdominal: Soft, Non-Tender Course - Vital Signs Last Recorded V/S: Last Vital Signs Temp 97.7 F 06/18/20 13:28 Pulse 61 06/18/20 13:28 Resp 17 06/18/20 13:28 BP 132/74 06/18/20 13:28 Pulse Ox 96 06/18/20 13:28 - Orders/Labs/Meds Orders: Active Orders 24 hr Category Date Time Status Cardiac Monitoring [RC] .As Directed Care 06/18/20 13:10 Active EKG Documentation Completion [RC] ASDIRECTED Care 06/18/20 13:11 Active Peripheral IV Care [RC] . DIRECTED Care 06/18/20 13:11 Active Morphine Med 06/18/20 13:10 Active 4 mg IVPUSH Q10M PRN Sodium Chloride 0.9% [Saline Flush] Med 06/18/20 13:10 Active 10 ml FLUSH ASDIRECTED PRN Peripheral IV Insertion Adult [OM.PC] Stat Oth 06/18/20 13:10 Ordered Saline Lock Insert [OM.PC] Stat Oth 06/18/20 13:10 Ordered EKG 12 Lead [EK] Stat Ther 06/18/20 13:10 Ordered Medication Orders Morphine Sulfate (Morphine) 4 mg IVPUSH Q10M PRN PRN Reason: Chest Pain Stop: 06/19/20 13:10 Sodium Chloride (Saline Flush) 10 ml FLUSH ASDIRECTED PRN PRN Reason: Keep Vein Open Last Admin: 06/18/20 13:29 Dose: 10 ml Documented by: [id number] Labs: Laboratory Tests 06/18/20 06/18/20 06/18/20 Range/Units 13:10 13:10 13:30 WBC 8.5 (4.5-11.0) K/uL RBC 4.41 (4.30-5.90) M/uL Hgb 14.0 (12.0-15.0) g/dL Hct 44.6 (40.0-54.0) % MCV 101 H (80-98) fL MCH 32 H (27-31) pg MCHC 31 L (32-36) % Plt Count 204 (150-400) K/uL Neut % (Auto) 61 (36-66) % Lymph % (Auto) 23 L (24-44) % [place] % (Auto) 12 H (2-6) % Eos % (Auto) 4 (2-4) % Baso % (Auto) 0 (0-1) % Sodium 141 (140-148) mmol/L Potassium 3.8 (3.6-5.2) mmol/L Chloride 106 (100-108) mmol/L Carbon Dioxide 27 (21-32) mmol/L Anion Gap 7.9 (5.0-14.0) mmol/L BUN 22 H (7-18) mg/dL Creatinine 0.8 (0.8-1.3) mg/dL Est Cr Clr Drug Dosing 90.26 mL/min Estimated GFR (MDRD) > 60 (>60) Glucose 121 H (74-106) mg/dL Calcium 8.4 L (8.5-10.1) mg/dL Total Bilirubin 0.6 (0.2-1.0) mg/dL AST 20 (15-37) U/L ALT 39 (12-78) U/L Alkaline Phosphatase 83 (46-116) U/L POC Troponin I 0.01 (0.00-0.08) Total Protein 6.7 (6.4-8.2) g/dL Albumin 3.4 (3.4-5.0) g/dL Globulin 3.3 (2.3-3.5) g/dL Albumin/Globulin Ratio 1.0 L (1.2-2.2) Meds: Medications Generic Name Dose Route Start Last Admin Trade Name Freq PRN Reason Stop Dose Admin Morphine Sulfate 4 mg 06/18/20 13:10 Morphine IVPUSH 06/19/20 13:10 Q10M PRN Chest Pain Sodium Chloride 10 ml 06/18/20 13:10 06/18/20 13:29 Saline Flush FLUSH 10 ml ASDIRECTED PRN Administration Keep Vein Open Discontinued Medications Generic Name Dose Route Start Last Admin Trade Name Freq PRN Reason Stop Dose Admin Aspirin 324 mg 06/18/20 13:10 06/18/20 13:23 Aspirin PO 06/18/20 13:11 324 mg ONETIME ONE Administration Departure - Departure Time of Disposition: 14:30 Disposition: Home, Self-Care 01 Condition: Fair Clinical Impression: Palpitations Referrals: PCP,None [Primary Care Provider] - Additional Instructions: Continue with your regular medications, recommend using the same pill in the pocket approach with the metoprolol as needed for palpitations keep your scheduled appointment with cardiology on July 02 call or return to the emergency department worsening of symptoms Sepsis Event Note (ED) - Focused Exam Vital Signs: Vital Signs Temp Pulse Resp BP Pulse Ox 06/18/20 13:28 97.7 F 61 17 132/74 96 06/18/20 13:23 97.7 F 61 17 132/74 96 - My Orders Last 24 Hours: My Active Orders 06/18/20 13:10 Cardiac Monitoring [RC] .As Directed Morphine 4 mg IVPUSH Q10M PRN Sodium Chloride 0.9% [Saline Flush] 10 ml FLUSH ASDIRECTED PRN Peripheral IV Insertion Adult [OM.PC] Stat Saline Lock Insert [OM.PC] Stat EKG 12 Lead [EK] Stat 06/18/20 13:11 EKG Documentation Completion [RC] ASDIRECTED Peripheral IV Care [RC] . DIRECTED - Assessment/Plan Last 24 Hours: My Active Orders 06/18/20 13:10 Cardiac Monitoring [RC] .As Directed Morphine 4 mg IVPUSH Q10M PRN Sodium Chloride 0.9% [Saline Flush] 10 ml FLUSH ASDIRECTED PRN Peripheral IV Insertion Adult [OM.PC] Stat Saline Lock Insert [OM.PC] Stat EKG 12 Lead [EK] Stat 06/18/20 13:11 EKG Documentation Completion [RC] ASDIRECTED Peripheral IV Care [RC] . DIRECTED Plan: Assessment assessment Acuity = acute Site and laterality = palpitations Etiology = probable atrial fibrillation with RVR now resolved Manifestations = none Location of injury = Home Lab values = CBC, CMP unremarkable troponin is negative EKG demonstrates sinus rhythm left axis deviation right bundle branch block no ST elevations or depressions Plan He did take metoprolol prior to presentation which may have aborted his atrial fibrillation with RVR, he is can remain on metoprolol twice daily dosing 25 mg use a 25 mg for an abortive measure again if this happens and then report to the emergency department if it does not resolve he is scheduled for ablation on 02 July remains anticoagulated on Eliquis This note was dictated using [employer] voice recognition software please call with any questions on syntax or grammar.
[2020-06-18 13:25] VITALS: BP 132/74; PULSE 61
== END 2020-06-18 14:40 | disposition home or self-care (01) ==
LOC: JP.ED 13:04
DX: R00.2 Palpitations (principal); I10 Essential (primary) hypertension; E78.00 Pure hypercholesterolemia, unspecified; I25.2 Old myocardial infarction; I25.10 Atherosclerotic heart disease of native coronary artery without angina pectoris; I48.91 Unspecified atrial fibrillation; E66.9 Obesity, unspecified; J44.9 Chronic obstructive pulmonary disease, unspecified; Z68.30 Body mass index [BMI] 30.0-30.9, adult; Z90.49 Acquired absence of other specified parts of digestive tract; Z79.82 Long term (current) use of aspirin; Z79.899 Other long term (current) drug therapy
CPT/HCPCS: 36415; 80053; 84484; 85025; 93005; 99285; A9270

== ENCOUNTER 2020-07-08 13:37 | Emergency (ER) | payer MEDICARE, BC ==
--- NOTE | 2020-07-08 16:01 | EDM.PDOC ---
ED HPI GENERAL MEDICAL PROBLEM - General Chief Complaint: Respiratory Problem Stated Complaint: PAIN IN RIGHT LUNG Time Seen by Provider: 07/08/20 15:30 Source of Information: Reports: Patient, Family History Limitations: Reports: No Limitations - History of Present Illness INITIAL COMMENTS - FREE TEXT/NARRATIVE: 74-year-old male is struggling with some right anterior chest pain for the past 24 hours, he had an ablation for atrial fibrillation 1 week ago and has had good rate control. No shortness of breath. He does feel when he gets the pain it is relieved with oxygen. He went into the clinic to get a "chest x-ray" and they sent him to the emergency room. Denies any fevers or chills, he does feel more short of breath than usual with activity. He has COPD, wheezing, and is continuing to use his pulmonary medications including his nebulizer. The pain is very localized to the right anterior chest and it is painful to breathe or move. Onset: Gradual Duration: Day(s): (Has come on over the last 24 to 48 hours) Location: Reports: Chest (Right-sided) Improves with: Reports: Other (Oxygen seems to help) Worsens with: Reports: Breathing, Other (Palpation of the area is sore), Movement Associated Symptoms: Reports: Chest Pain, Malaise, Shortness of Breath. Denies: Fever/Chills, Headaches, Nausea/Vomiting right lung Pain Score (Numeric/FACES): 7 - Related Data Allergies Allergy/AdvReac Type Severity Reaction Status Date / Time No Known Allergies Allergy Verified 06/18/20 10:57 Home Meds: Home Meds Albuterol Sulfate [Proair Hfa] 2 puff INH BEDTIME PRN 06/09/16 [History] Lisinopril 10 mg PO DAILY 11/10/16 [History] Albuterol [Proventil Neb Soln] 0.63 mg NEB Q6H PRN 11/29/16 [History] Ibuprofen [Advil] 200 mg PO TID 07/13/17 [History] Fluticasone Propion/Salmeterol [Advair 250-50 Diskus] 1 diskus INH BID 12/06/18 [History] Apixaban [Eliquis] 5 mg PO BID 06/05/20 [History] Clopidogrel [Plavix] 75 mg PO DAILY 06/05/20 [History] Metoprolol Tartrate 12.5 mg PO BID 06/05/20 [History] Nitroglycerin [Nitrostat] 0.4 mg SL ASDIRECTED 06/05/20 [History] atorvaSTATin [Lipitor] 80 mg PO BEDTIME 06/05/20 [History] Past Medical History HEENT History: Reports: Impaired Vision Other HEENT History: wear glasses Cardiovascular History: Reports: Afib, CAD, High Cholesterol, Hypertension, [place], SOB on Exertion Respiratory History: Reports: COPD, Pneumonia, Recurrent, Sleep Apnea, SOB Musculoskeletal History: Reports: Arthritis, Back Pain, Chronic, Fracture Endocrine/Metabolic History: Reports: Obesity/BMI 30+ Hematologic History: Reports: None Dermatologic History: Reports: Cellulitis - Infectious Disease History Infectious Disease History: Reports: Chicken Pox - Past Surgical History HEENT Surgical History: Reports: Adenoidectomy, Tonsillectomy Cardiovascular Surgical History: Reports: None Other Cardiovascular Surgeries/Procedures: Stent placed in [facility] recently. Respiratory Surgical History: Reports: Lung Biopsies, Lung Resection GI Surgical History: Reports: Colonoscopy Endocrine Surgical History: Reports: None Musculoskeletal Surgical History: Reports: Carpal Tunnel, Hip Replacement Other Musculoskeletal Surgeries/Procedures:: back injections Social & Family History - Family History Cardiac: Reports: High Cholesterol, Hypertension, Pacemaker : Reports: Diabetic Nephropathy Musculoskeletal: Reports: Arthritis Neurological: Reports: CVA, Other (See Below) Other Neurological Family History: parkinsons Oncologic: Reports: Breast - Tobacco Use Tobacco Use Status *Q: Unknown Ever Used Tobacco - Caffeine Use Caffeine Use: Reports: Coffee ED ROS GENERAL - Review of Systems Review Of Systems: See Below Constitutional: Reports: Malaise. Denies: Fever, Chills HEENT: Denies: Vision Change Respiratory: Reports: Shortness of Breath, Cough. Denies: Sputum Cardiovascular: Reports: Chest Pain, Dyspnea on Exertion. Denies: Palpitations GI/Abdominal: Reports: No Symptoms Skin: Reports: No Symptoms Neurological: Reports: Weakness ED EXAM, GENERAL - Physical Exam Exam: See Below Exam Limited By: No Limitations General Appearance: Alert, No Apparent Distress, Other (Looks uncomfortable especially with moving, increased pain when he sat up) Head: Atraumatic Respiratory/Chest: No Respiratory Distress, Wheezing (Diffuse expiratory wheezing is heard, otherwise breath sounds are equal bilaterally), Other (Chest wall is very sore to palpation along the right costochondral junction anteriorly) Cardiovascular: Regular Rate, Rhythm. No: Extra Beats Extremities: Other (Trace symmetric edema) Neurological: Alert, Oriented Psychiatric: Normal Affect, Normal Mood Skin Exam: Warm, Dry Course - Vital Signs Last Recorded V/S: Last Vital Signs Temp 99.1 F 07/08/20 15:26 Pulse 64 07/08/20 16:06 Resp 20 07/08/20 16:06 BP 132/79 07/08/20 16:06 Pulse Ox 98 07/08/20 16:06 - Orders/Labs/Meds Labs: Laboratory Tests 07/08/20 07/08/20 Range/Units 16:13 16:13 WBC 13.4 H (4.5-11.0) K/uL RBC 3.87 L (4.30-5.90) M/uL Hgb 12.6 (12.0-15.0) g/dL Hct 39.7 L (40.0-54.0) % MCV 103 H (80-98) fL MCH 33 H (27-31) pg MCHC 32 (32-36) % Plt Count 191 (150-400) K/uL Neut % (Auto) 68 H (36-66) % Lymph % (Auto) 15 L (24-44) % [place] % (Auto) 15 H (2-6) % Eos % (Auto) 2 (2-4) % Baso % (Auto) 0 (0-1) % Sodium 141 (140-148) mmol/L Potassium 4.4 (3.6-5.2) mmol/L Chloride 103 (100-108) mmol/L Carbon Dioxide 30 (21-32) mmol/L Anion Gap 7.7 (5.0-14.0) mmol/L BUN 19 H (7-18) mg/dL Creatinine 0.9 (0.8-1.3) mg/dL Est Cr Clr Drug Dosing 80.23 mL/min Estimated GFR (MDRD) > 60 (>60) Glucose 83 (74-106) mg/dL Calcium 8.9 (8.5-10.1) mg/dL Troponin I 0.032 (0.000-0.056) ng/mL Meds: Medications Discontinued Medications Generic Name Dose Route Start Last Admin Trade Name Freq PRN Reason Stop Dose Admin Albuterol/Ipratropium 3 ml 07/08/20 16:33 07/08/20 17:11 Duoneb 3.0-0.5 Mg/3 Ml NEB 07/08/20 16:34 3 ml ONETIME ONE Administration - Re-Assessments/Exams Free Text/Narrative Re-Assessment/Exam: 07/08/20 16:00 CBC, BMP and troponin were obtained as well as a two-view chest x-ray. 07/08/20 16:59 Chest x-ray shows some haziness of the right lung which could be "postsurgical" or early infiltrative process. White count is 14,300, CMP is normal except slight decrease in BUN at 19.. Troponin is within normal limits. He was given a DuoNeb which increased his breathing capacity and decreased his discomfort. 07/08/20 17:00 Patient responded well to the DuoNeb. Will be discharged with 15 tramadol to use 1-2 every 4-6 hours, and a course of Zithromax. Departure - Departure Time of Disposition: 17:48 Disposition: Home, Self-Care 01 Clinical Impression: Chest wall pain, Bronchitis - Discharge Information Instructions: Chest Wall Pain, [id number], Acute Bronchitis, Adult, [id number] Referrals: Nino Meredith MD [Primary Care Provider] - Forms: ED Department Discharge Care Plan Goals: No need for hospitalization at this time, take tramadol along with your regular medications as prescribed for extra pain control. Also take course of antibiotics for your early bronchitis type symptoms. Return anytime if worsening especially fevers or increased shortness of breath. Sepsis Event Note (ED) - Evaluation Sepsis Screening Result: No Definite Risk - Focused Exam Vital Signs: Vital Signs Temp Pulse Resp BP Pulse Ox 07/08/20 16:06 64 20 132/79 98 07/08/20 15:26 99.1 F 68 24 H 141/78 H 99 07/08/20 15:24 99.1 F 68 24 H 141/78 H 99
[2020-07-08 16:07] VITALS: BP 132/79; PULSE 64
--- NOTE | 2020-07-08 16:07 | CR ---
CHEST: 2 view CLINICAL HISTORY:Dyspnea COMPARISON:June 13, 2016 FINDINGS: There is elevation of the right hemidiaphragm. There is some irregularity of the right hilum which was also seen in 2016. This may be from previous surgery. Heart size is normal. There are atherosclerotic changes in the aorta. There is some nodularity in the left infrahilar region which is felt to be similar to 2016 IMPRESSION: Fine loss in the right hemithorax may be postsurgical or due to scarring Nodularity in the left infrahilar region is felt to be similar to 2016 No mass or infiltrate
[2020-07-08] MEDS ORDERED: Albuterol/Ipratropium 3.0-0.5 MG/3 ML Neb Soln NEB ONE (16:33)
== END 2020-07-08 17:20 | disposition home or self-care (01) ==
LOC: JP.ED 13:37
DX: J40 Bronchitis, not specified as acute or chronic (principal); I48.91 Unspecified atrial fibrillation; I25.10 Atherosclerotic heart disease of native coronary artery without angina pectoris; E78.00 Pure hypercholesterolemia, unspecified; I10 Essential (primary) hypertension; I25.2 Old myocardial infarction; E66.9 Obesity, unspecified; Z68.30 Body mass index [BMI] 30.0-30.9, adult; Z79.899 Other long term (current) drug therapy; Z79.01 Long term (current) use of anticoagulants; Z79.02 Long term (current) use of antithrombotics/antiplatelets
CPT/HCPCS: 36415; 71046; 71046-26; 80048; 84484; 85025; 94640; 99284; 99285-25; J7620-GY

== ENCOUNTER 2021-06-18 20:37 | Emergency (ER) | payer MEDICARE, BC ==
--- NOTE | 2021-06-18 20:54 | EDM.PDOC ---
ED HPI GENERAL MEDICAL PROBLEM - General Stated Complaint: CHEST PAINS Time Seen by Provider: 06/18/21 20:40 Source of Information: Reports: Patient History Limitations: Reports: No Limitations - History of Present Illness INITIAL COMMENTS - FREE TEXT/NARRATIVE: 75-year-old male with known cardiac disease, intermittent atrial fibrillation presents with 2-1/2 hours of chest pain that started after eating a large meal. He thought it was indigestion, tried Tums twice which did not help, then tried nitroglycerin twice and that also did not help. He then remembered he was told if he had to use 3 nitroglycerin he should come to the emergency room, he took a third and it did not seem to be improving so he came in. He is now pain-free. Pain started 2-1/2 hours ago. Currently he feels back to baseline. EKG done on arrival shows sinus rhythm with frequent PACs, some voltage findings appears to show inferior infarct but this is consistent with past EKGs. He has high T waves and a right bundle branch block especially on the precordial leads, this is also consistent with past EKGs. The pain did not radiate. Onset: Sudden Duration: Hour(s): Location: Reports: Chest (Substernal) Quality: Reports: Burning, Pressure Severity: Moderate Improves with: Reports: None, Other (Tums and nitroglycerin were not effective, seems to have resolved with time) Worsens with: Reports: None Associated Symptoms: Reports: Shortness of Breath - Related Data Allergies Allergy/AdvReac Type Severity Reaction Status Date / Time No Known Allergies Allergy Verified 06/18/21 20:47 Home Meds: Home Meds Albuterol Sulfate [Proair Hfa] 2 puff INH BEDTIME PRN 06/09/16 [History] Lisinopril 10 mg PO DAILY 11/10/16 [History] Albuterol [Proventil Neb Soln] 0.63 mg NEB Q6H PRN 11/29/16 [History] Ibuprofen [Advil] 600 mg PO BEDTIME 07/13/17 [History] Fluticasone Propion/Salmeterol [Advair 250-50 Diskus] 1 diskus INH BID 12/06/18 [History] Clopidogrel [Plavix] 75 mg PO DAILY 06/05/20 [History] Metoprolol Tartrate 12.5 mg PO BID 06/05/20 [History] Nitroglycerin [Nitrostat] 0.4 mg SL ASDIRECTED 06/05/20 [History] atorvaSTATin [Lipitor] 80 mg PO BEDTIME 06/05/20 [History] Furosemide [Lasix] 20 mg PO DAILY 06/18/21 [History] Warfarin [Coumadin] 5 mg PO DAILY 06/18/21 [History] Past Medical History HEENT History: Reports: Impaired Vision Other HEENT History: wear glasses Cardiovascular History: Reports: Afib, CAD, High Cholesterol, Hypertension, [place], SOB on Exertion Respiratory History: Reports: COPD, Pneumonia, Recurrent, Sleep Apnea, SOB Musculoskeletal History: Reports: Arthritis, Back Pain, Chronic, Fracture Endocrine/Metabolic History: Reports: Obesity/BMI 30+ Hematologic History: Reports: None Dermatologic History: Reports: Cellulitis - Infectious Disease History Infectious Disease History: Reports: Chicken Pox - Past Surgical History HEENT Surgical History: Reports: Adenoidectomy, Tonsillectomy Cardiovascular Surgical History: Reports: None Other Cardiovascular Surgeries/Procedures: Stent placed in [facility] recently. Respiratory Surgical History: Reports: Lung Biopsies, Lung Resection GI Surgical History: Reports: Colonoscopy Endocrine Surgical History: Reports: None Musculoskeletal Surgical History: Reports: Carpal Tunnel, Hip Replacement Other Musculoskeletal Surgeries/Procedures:: back injections Social & Family History - Family History Cardiac: Reports: High Cholesterol, Hypertension, Pacemaker : Reports: Diabetic Nephropathy Musculoskeletal: Reports: Arthritis Neurological: Reports: CVA, Other (See Below) Other Neurological Family History: parkinsons Oncologic: Reports: Breast - Caffeine Use Caffeine Use: Reports: Coffee ED ROS GENERAL - Review of Systems Review Of Systems: See Below Constitutional: Denies: Fever, Chills HEENT: Reports: No Symptoms Respiratory: Reports: Shortness of Breath. Denies: Cough Cardiovascular: Reports: Chest Pain GI/Abdominal: Reports: Abdominal Pain (Some pressure and fullness in the upper abdomen), Other (Tends to get) : Reports: No Symptoms ( heartburn fairly often) Skin: Reports: No Symptoms. Denies: Diaphoresis Neurological: Reports: No Symptoms Psychiatric: Reports: No Symptoms ED EXAM, GENERAL - Physical Exam Exam: See Below Exam Limited By: No Limitations General Appearance: Alert, No Apparent Distress Eye Exam: Bilateral Eye: Normal Inspection Head: Atraumatic Neck: Supple, Non-Tender Respiratory/Chest: Lungs Clear Cardiovascular: Systolic Murmur (2/6 systolic murmur), Extra Beats, Irregularly Irregular GI/Abdominal: Normal Bowel Sounds, Soft, Tender (Some mild discomfort to palpation over the epigastric area, no guarding or rebound) Extremities: Normal Inspection. No: Pedal Edema Neurological: Alert, Oriented Psychiatric: Normal Affect, Normal Mood Skin Exam: Warm, Dry #1 Interpretation EKG Date: 06/18/21 Rhythm: NSR QRS: RBBB ST-T: Other (Some minimal ST elevation in the inferior leads is consistent with past EKGs) EKG Interpretation Comments: Frequent PACs giving the impression of intermittent atrial fibrillation. Course - Vital Signs Last Recorded V/S: Last Vital Signs Temp 98.8 F 06/18/21 20:42 Pulse 88 06/18/21 22:43 Resp 22 H 06/18/21 22:43 BP 127/61 06/18/21 22:43 Pulse Ox 92 L 06/18/21 22:43 - Orders/Labs/Meds Orders: Active Orders 24 hr Category Date Time Status EKG 12 Lead [EK] Routine Ther 06/18/21 20:47 Ordered Labs: Laboratory Tests 06/18/21 06/18/21 06/18/21 Range/Units 20:57 20:57 23:00 WBC 14.8 H (4.5-11.0) K/uL RBC 4.38 (4.30-5.90) M/uL Hgb 14.3 (12.0-15.0) g/dL Hct 42.9 (40.0-54.0) % MCV 98 (80-98) fL MCH 33 H (27-31) pg MCHC 33 (32-36) % Plt Count 227 (150-400) K/uL Neut % (Auto) 78.8 H (36-66) % Lymph % (Auto) 9.0 L (24-44) % [place] % (Auto) 12.0 H (2-6) % Eos % (Auto) 0.0 L (2-4) % Baso % (Auto) 0.2 (0-1) % Sodium 147 (140-148) mmol/L Potassium 4.0 (3.6-5.2) mmol/L Chloride 109 H (100-108) mmol/L Carbon Dioxide 27 (21-32) mmol/L Anion Gap 15.0 H (5.0-14.0) mmol/L BUN 31 H D (7-18) mg/dL Creatinine 1.3 (0.8-1.3) mg/dL Est Cr Clr Drug Dosing 53.10 mL/min Estimated GFR (MDRD) 54 L (>60) Glucose 123 H (74-106) mg/dL Calcium 8.7 (8.5-10.1) mg/dL Total Bilirubin 0.3 (0.2-1.0) mg/dL AST 33 (15-37) U/L ALT 44 (12-78) U/L Alkaline Phosphatase 119 H (46-116) U/L Troponin I 0.060 H* 0.093 H* (0.000-0.056) ng/mL Total Protein 7.2 (6.4-8.2) g/dL Albumin 3.6 (3.4-5.0) g/dL Globulin 3.6 H (2.3-3.5) g/dL Albumin/Globulin Ratio 1.0 L (1.2-2.2) - Re-Assessments/Exams Free Text/Narrative Re-Assessment/Exam: 06/18/21 20:56 Patient is asymptomatic at this time, no further acute care needed. CBC CMP and troponin were obtained, if pain recurs EKG will be repeated. He will be kept on cardiac monitoring pending labs. 06/18/21 23:45 Initial troponin was 0.06, slightly elevated. Previous troponin levels were reviewed and he always runs borderline troponin levels. He did not redevelop symptoms. He was monitored for an additional 3 hours, did not redevelop any symptoms but his troponin amparo slightly to 0.09. He continued to be in any intermittent sinus rhythm with frequent PACs with what looked like runs of atrial fibrillation with excellent rate control. He wanted to go home, copies were made of his labs and EKGs and if pain recurs and is persistent he is going to return. Departure - Departure Time of Disposition: 23:48 Disposition: Home, Self-Care 01 Clinical Impression: Precordial chest pain - Discharge Information Instructions: Nonspecific Chest Pain, Adult, [id number] Referrals: Nino Meredith MD [Primary Care Provider] - Forms: ED Department Discharge Care Plan Goals: Continue your current medications, increase activity as tolerated, and return if chest pain recurs that is persistent and unresponsive to your nitroglycerin. Also return if you develop increasing shortness of breath above your baseline. Take lab and EKGs with you when you leave in case you run into trouble in the future they can compare current and past results. Sepsis Event Note (ED) - Evaluation Sepsis Screening Result: No Definite Risk - My Orders Last 24 Hours: My Active Orders 06/18/21 20:47 EKG 12 Lead [EK] Routine - Assessment/Plan Last 24 Hours: My Active Orders 06/18/21 20:47 EKG 12 Lead [EK] Routine
[2021-06-18 22:05] VITALS: PULSE 88
[2021-06-18 22:44] VITALS: BP 127/61
== END 2021-06-19 00:04 | disposition home or self-care (01) ==
LOC: JP.ED 20:37
DX: R07.2 Precordial pain (principal); I48.91 Unspecified atrial fibrillation; I25.10 Atherosclerotic heart disease of native coronary artery without angina pectoris; E78.00 Pure hypercholesterolemia, unspecified; I10 Essential (primary) hypertension; I25.2 Old myocardial infarction; E66.9 Obesity, unspecified; Z79.899 Other long term (current) drug therapy; Z79.01 Long term (current) use of anticoagulants; Z68.31 Body mass index [BMI] 31.0-31.9, adult
CPT/HCPCS: 36415; 80053; 84484; 85025; 93005; 99285-25

== ENCOUNTER 2022-05-27 07:37 | Day surgery (SDC) | payer MEDICARE, BC ==
[2022-05-27] MEDS: Sodium Chloride 0.9% 1,000 ML IV SCH (08:18)
[2022-05-27] MEDS ORDERED: Propofol 200 MG/20 ML SDV ONE (09:03)
[2022-05-27] MEDS ORDERED: fentaNYL 100 MCG/2 ML SDV ONE (09:03)
[2022-05-27 10:21] VITALS: BP 124/70; PULSE 71
== END 2022-05-27 10:37 | disposition home or self-care (01) ==
LOC: JP.SDS 07:37
PROVIDERS: ATTEND Surgery
DX: Z12.11 Encounter for screening for malignant neoplasm of colon (principal); D12.8 Benign neoplasm of rectum; K57.30 Diverticulosis of large intestine without perforation or abscess without bleeding; G47.33 Obstructive sleep apnea (adult) (pediatric); J44.9 Chronic obstructive pulmonary disease, unspecified; I10 Essential (primary) hypertension; I25.2 Old myocardial infarction; F32.A Depression, unspecified; E66.9 Obesity, unspecified; F17.290 Nicotine dependence, other tobacco product, uncomplicated
CPT/HCPCS: 45380; J2704; J3010; J7030

== ENCOUNTER 2024-03-16 19:10 | Emergency (ER) | payer MEDICARE, BC ==
[2024-03-16 20:08] LABS: ANION GAP 6.1 mmol/L (5.0-14.0); CREATININE 0.9 mg/dL (0.8-1.3); EST CRCL DRUG DOSING (CG) 73.21 mL/min; POTASSIUM,K 4.2 mmol/L (3.6-5.2)
[2024-03-16] MEDS: Sodium Chloride 0.9% 80 ML IV SCH (20:22)
[2024-03-16] MEDS: Iopamidol 612 MG/ML 100 ML Bottle IV SCH (20:22)
[2024-03-16 22:43] VITALS: BP 166/74; PULSE 51
== END 2024-03-17 00:03 | disposition other institution (70) ==
LOC: JP.ED 19:10
DX: I65.21 Occlusion and stenosis of right carotid artery (principal); I10 Essential (primary) hypertension; M19.90 Unspecified osteoarthritis, unspecified site; E78.00 Pure hypercholesterolemia, unspecified; E66.9 Obesity, unspecified; Z79.01 Long term (current) use of anticoagulants; Z79.82 Long term (current) use of aspirin; Z79.899 Other long term (current) drug therapy; Z87.891 Personal history of nicotine dependence; Z68.28 Body mass index [BMI] 28.0-28.9, adult
CPT/HCPCS: 36415; 70450; 70496; 70498; 80048; 99285; J3490; Q9967

== ENCOUNTER 2024-03-28 14:46 | Emergency (ER) | payer MEDICARE, BC ==
[2024-03-28 15:09] VITALS: BP 131/66; PULSE 56
== END 2024-03-28 17:08 | disposition home or self-care (01) ==
LOC: JP.ED 14:46
DX: R51.9 Headache, unspecified (principal); I10 Essential (primary) hypertension; I25.10 Atherosclerotic heart disease of native coronary artery without angina pectoris; I25.2 Old myocardial infarction; I48.91 Unspecified atrial fibrillation; E78.00 Pure hypercholesterolemia, unspecified; J44.9 Chronic obstructive pulmonary disease, unspecified; E66.9 Obesity, unspecified; Z95.5 Presence of coronary angioplasty implant and graft; Z79.01 Long term (current) use of anticoagulants; Z79.82 Long term (current) use of aspirin; Z79.899 Other long term (current) drug therapy; Z79.1 Long term (current) use of non-steroidal anti-inflammatories (NSAID); Z79.51 Long term (current) use of inhaled steroids; Z91.048 Other nonmedicinal substance allergy status; Z68.27 Body mass index [BMI] 27.0-27.9, adult
CPT/HCPCS: 70450; 70450-26; 99283; 99284